=== PATIENT | male | born 1965 | race Caucasian/White ===

== ENCOUNTER 2023-03-04 05:43 | Emergency (ER) | payer OTHER ==
[~2023-03-04] VITALS: Ht 182.9 cm; Wt 159.1 kg
[~2023-03-04 05:43] MED LIST: NO HOME MEDS
--- NOTE | 2023-03-04 06:59 | NUR ---
pt resting at edge of bed. no c/o pain or nausea. denies anxiety. pt not shaking sweating. no reports of itching or hallucinations.
--- NOTE | 2023-03-04 07:11 | NUR ---
RN UPDATED PT EX BONG PINO ON PT STATUS AND REQ REG CORRECT HER PH# IN THE SYSTEM.
[2023-03-04 07:57] VITALS: BP 125/82
--- NOTE | 2023-03-04 08:07 | NUR ---
PT IS BEING DISCHARGED. RN CALLED PT CONTACT BONG AND SHE WILL COME PICK HIM UP FROM WAITING RM.
== END 2023-03-04 08:18 | disposition home or self-care (01) ==
LOC: ER 05:44
DX: R41.82 Altered mental status, unspecified (principal)
CPT/HCPCS: 99284

== ENCOUNTER 2023-08-04 01:22 | Inpatient (IN) | payer MEDICAID ==
[~2023-08-04] VITALS: Ht 185.4 cm; Wt 179.7 kg
[2023-08-04] VITALS (19 sets, daily range): PULSE 95–114; RESP 13–19; O2SAT 88–99
[2023-08-04] MEDS ORDERED: methylPREDNISolone sod succ 125mg/2ml vial IV ONE (01:55)
[2023-08-04] MEDS ORDERED: albuterol 2.5 MG/3 ML nebule NEB ONE ×2 (01:55→03:45)
[2023-08-04 02:49] LABS: BASOPHILS # (AUTO) 0.2 X10'3 (0-0.2); BASOPHILS % (AUTO) 1.7 % (0-1); EOSINOPHILS # (AUTO) 0.1 X10'3 (0-0.9); EOSINOPHILS % (AUTO) 0.9 % (0-6); HEMATOCRIT 42.7 % (42.0-52.0); HEMOGLOBIN 14.8 g/dl (14.0-17.9); LYMPHOCYTES # (AUTO) 1.4 X10'3 (1.1-4.8); LYMPHOCYTES % (AUTO) 14.6 % (21-51); MEAN CORPUSCULAR HEMOGLOBIN 40.3 PG (27.0-31.0); MEAN CORPUSCULAR HGB CONC 34.8 g/dL (33.0-36.5); MEAN CORPUSCULAR VOLUME 115.8 FL (78-98); MEAN PLATELET VOLUME 8.9 FL (7.4-10.4); MONOCYTES # (AUTO) 0.7 X10'3 (0-0.9); MONOCYTES % (AUTO) 7.4 % (2-12); NEUTROPHILS # (AUTO) 7.4 X10'3 (1.8-7.7); NEUTROPHILS % (AUTO) 75.4 % (42-75); PLATELET COUNT 137 X10'3 (140-440); RED BLOOD COUNT 3.69 X10'6 (4.70-6.10); RED CELL DISTRIBUTION WIDTH 20.9 % (11.5-14.5); WHITE BLOOD COUNT 9.9 X10'3 (4.5-11.0)
[2023-08-04 03:29] LABS: APTT 22 SECONDS (22-32); D-DIMER 1.45 MG/L FEU (0-0.50); INR 1.1 INR; PROTHROMBIN TIME 11.9 SECONDS (9.0-12.0)
[2023-08-04 03:40] LABS: ALANINE AMINOTRANSFERASE 32 U/L (12-78); ALBUMIN 2.3 G/DL (3.4-5.0); ALBUMIN/GLOBULIN RATIO 0.6 (1.1-1.5); ALKALINE PHOSPHATASE 196 IU/L (46-116); ANION GAP 6 (8-16); ASPARTATE AMINO TRANSFERASE 90 U/L (10-37); BILIRUBIN,TOTAL 1.5 MG/DL (0.1-1.0); BLOOD UREA NITROGEN 2 MG/DL (7-18); BUN/CREATININE RATIO 2.8 (10.0-20.0); CALCIUM 7.6 MG/DL (8.5-10.1); CHLORIDE 96 MMOL/L (99-107); CREATININE 0.71 MG/DL (0.60-1.10); ETHANOL 252 MG/DL (<10); GLUCOSE 132 MG/DL (70-104); PRO BRAIN NATRIURETIC PEPTIDE 176 PG/ML (0-125); SODIUM 138 MMOL/L (135-145); TOTAL PROTEIN 6.3 G/DL (6.4-8.2); eCRCL 131 ML/MIN; eGFR > 90 ML/MIN
[2023-08-04 03:42] LABS: POTASSIUM 2.4 MMOL/L (3.5-5.1)
[2023-08-04 03:50] LABS: MAGNESIUM 1.7 MG/DL (1.5-2.4)
[2023-08-04] MEDS ORDERED: magnesium 2GM in 50ml NS 50 ML IV ONE (03:50)
[2023-08-04] MEDS ORDERED: CefTRIAXone 2gm/D5W 50ml BAG 50 ML IV ONE (03:50)
[2023-08-04] MEDS ORDERED: potassium Cl 20 mEq SR tablet PO ONE (03:50)
[2023-08-04] MEDS ORDERED: haloperidol 5mg tablet PO PRN (04:00)
[2023-08-04] MEDS ORDERED: LORazepam 1 MG tablet PO PRN (04:00)
[2023-08-04] MEDS ORDERED: aspirin 81mg tab.chew PO ONE (04:00)
[2023-08-04] MEDS ORDERED: potassium Cl 40MEQ/1/2NS 520ml 520 ML IV ONE (04:00)
[2023-08-04] MEDS ORDERED: normal saline 1000ML IV soln IV ONE (04:00)
[2023-08-04] MEDS ORDERED: haloperidol lactate 5mg/ml inj IM PRN (04:00)
[2023-08-04] MEDS ORDERED: potassium Cl 40MEQ/1/2NS 520ml 520 ML IV PRN (04:05)
[2023-08-04] MEDS ORDERED: magnesium Cl slow-release 64mg tablet PO PRN (04:05)
[2023-08-04] MEDS ORDERED: magnesium 4gm in 100ml NS 100 ML IV PRN (04:05)
[2023-08-04] MEDS ORDERED: acetaminophen 325mg tablet PO PRN ×2 (04:05)
[2023-08-04] MEDS ORDERED: ondansetron/PF 4mg/2ml inj IV PRN (04:05)
[2023-08-04] MEDS ORDERED: magnesium 2GM in 50ml NS 50 ML IV PRN (04:05)
[2023-08-04] MEDS ORDERED: potassium Cl 20 mEq SR tablet PO PRN (04:05)
[2023-08-04] MEDS ORDERED: Potassium Cl inj 20 MEQ in normal saline 1000ml 990 ML IV SCH (04:15)
[2023-08-04] MEDS ORDERED: iohexol 350 MG/ML 50ML vial IV ONE (04:16)
[2023-08-04] MEDS ORDERED: iohexol 350MG/ML 100ml bottle IV ONE ×2 (04:16→04:44)
[2023-08-04 05:09] LABS: PLATELET ESTIMATE DECREASED
[2023-08-04 05:10] LABS: ANISOCYTOSIS 3+
[2023-08-04] MEDS: potassium Cl 20mEq in NS 1,000 ML IV SCH ×2 (05:26→15:35)
[2023-08-04] MEDS ORDERED: heparin 10,000 units/1 ML INJ IV PRN (06:00)
[2023-08-04] MEDS ORDERED: heparin 10,000 units/1 ML INJ IV ONE ×2 (06:00)
[2023-08-04] MEDS ORDERED: heparin 25,000 UNIT/250ml bag 250 ML IV PRN ×2 (06:00)
[2023-08-04] MEDS: albuterol 2.5 MG/3 ML nebule NEB SCH ×5 (07:30→23:21)
[2023-08-04] MEDS ORDERED: heparin, porcine 5000 units/ml vial SQ SCH (08:00)
[2023-08-04] MEDS ORDERED: methylPREDNISolone sod succ/PF 40mg inj. IV SCH (08:00)
--- NOTE | 2023-08-04 08:30 | NUR ---
[facility] [phone]
[2023-08-04] MEDS: thiamine 100mg/ml 2ml inj. IV SCH ×3 (08:45→20:32)
[2023-08-04] MEDS: nicotine 21mg patch - 24 hr TD SCH (08:46)
[2023-08-04] MEDS: folic acid 1mg/0.2ml inj IV SCH (08:57)
[2023-08-04 09:35] LABS: URINE AMPHETAMINE SCREEN NEGATIVE (Neg); URINE BARBITUATE SCREEN NEGATIVE (Neg); URINE BENZODIAZEPINES SCREEN NEGATIVE (Neg); URINE CANNABINOID SCREEN NEGATIVE (Neg); URINE COCAINE SCREEN NEGATIVE (Neg); URINE METHADONE SCREEN NEGATIVE (Neg); URINE OPIATE SCREEN NEGATIVE (Neg); URINE PHENCYCLIDINE SCREEN NEGATIVE (Neg)
[2023-08-04] MEDS: furosemide 40mg/4ml inj IV SCH (11:47)
[2023-08-04] MEDS: LORazepam 2 mg/ml vial IV PRN ×2 (14:20→21:21)
[2023-08-04 15:06] LABS: APTT 81 SECONDS (22-32)
--- NOTE | 2023-08-04 16:27 | NUR ---
PT RESTING IN BED, + SHAKES AND PT REQUSTED SOMETHING TO HELP HIM WITH SHAKES AND ANXIETY. PT MEDICATED WITH PRN HALDOL PER ORDERS.
--- NOTE | 2023-08-04 18:07 | NUR ---
PT SLEEPING. PT ON CPAP FOR SEEPING. HEPARIN GTT CONTINUES AT 18ML/HR
--- NOTE | 2023-08-04 21:00 | NUR ---
assisted pt with bedpan, pt had diarrhea and urinated with urinal. pt states diarrhea is normal for him due to the drinking. pt's thighs and buttocks very red and painful for patient to roll and sit on bedpan. pt also c/o hand temors and requesting medication for it. pt denies headache, hallucinations, N/V.
--- NOTE | 2023-08-04 21:35 | NUR ---
spoke with pt mother Tony at bedside on pt's own cell phone with pt permission and updated her with plan of care.
[2023-08-05] VITALS (19 sets, daily range): BP systolic 124–147; BP diastolic 76–85; PULSE 83–113; RESP 12–21; TEMP 97.6–98.1; O2SAT 93–99
[2023-08-05 00:18] LABS: APTT 44 SECONDS (22-32)
[2023-08-05] MEDS: potassium Cl 20mEq in NS 1,000 ML IV SCH ×3 (00:35→20:35)
[2023-08-05 01:14] LABS: BASOPHILS % (AUTO) 0.6 % (0-1); EOSINOPHILS % (AUTO) 0 % (0-6); HEMATOCRIT 35.6 % (42.0-52.0); HEMOGLOBIN 12.3 g/dl (14.0-17.9); LYMPHOCYTES # (AUTO) 0.6 X10'3 (1.1-4.8); LYMPHOCYTES % (AUTO) 7.4 % (21-51); MEAN CORPUSCULAR HGB CONC 34.4 g/dL (33.0-36.5); MEAN CORPUSCULAR VOLUME 116.3 FL (78-98); MEAN PLATELET VOLUME 8.7 FL (7.4-10.4); MONOCYTES # (AUTO) 0.5 X10'3 (0-0.9); MONOCYTES % (AUTO) 5.9 % (2-12); NEUTROPHILS # (AUTO) 7.1 X10'3 (1.8-7.7); NEUTROPHILS % (AUTO) 86.1 % (42-75); PLATELET COUNT 74 X10'3 (140-440); RED BLOOD COUNT 3.07 X10'6 (4.70-6.10); RED CELL DISTRIBUTION WIDTH 20.1 % (11.5-14.5); WHITE BLOOD COUNT 8.3 X10'3 (4.5-11.0)
[2023-08-05 01:29] LABS: ALANINE AMINOTRANSFERASE 27 U/L (12-78); ALBUMIN 2.2 G/DL (3.4-5.0); ALBUMIN/GLOBULIN RATIO 0.6 (1.1-1.5); ALKALINE PHOSPHATASE 169 IU/L (46-116); ANION GAP 0 (8-16); ASPARTATE AMINO TRANSFERASE 70 U/L (10-37); BILIRUBIN,TOTAL 1.8 MG/DL (0.1-1.0); BLOOD UREA NITROGEN 5 MG/DL (7-18); BUN/CREATININE RATIO 7.8 (10.0-20.0); CALCIUM 7.6 MG/DL (8.5-10.1); CHLORIDE 102 MMOL/L (99-107); CREATININE 0.64 MG/DL (0.60-1.10); GLUCOSE 137 MG/DL (70-104); MAGNESIUM 1.9 MG/DL (1.5-2.4); PHOSPHORUS 2.1 MG/DL (2.3-4.5); POTASSIUM 3.1 MMOL/L (3.5-5.1); PRO BRAIN NATRIURETIC PEPTIDE 840 PG/ML (0-125); SODIUM 139 MMOL/L (135-145); TOTAL CARBON DIOXIDE 36.8 MMOL/L (24-32); TOTAL PROTEIN 6.1 G/DL (6.4-8.2); eCRCL 146 ML/MIN; eGFR > 90 ML/MIN
[2023-08-05 01:31] LABS: LIPASE 31 U/L (16-77)
[2023-08-05 02:15] LABS: PLATELET ESTIMATE DECREASED
[2023-08-05 02:17] LABS: ANISOCYTOSIS 3+
[2023-08-05] MEDS: albuterol 2.5 MG/3 ML nebule NEB SCH ×6 (03:02→23:47)
[2023-08-05 03:08] LABS: INR 1.1 INR; PROTHROMBIN TIME 12.1 SECONDS (9.0-12.0)
[2023-08-05] MEDS: CefTRIAXone 2gm/D5W 50ml BAG 50 ML IV SCH (04:09)
[2023-08-05] MEDS: LORazepam 2 mg/ml vial IV PRN (04:10)
[2023-08-05] MEDS ORDERED: heparin 10,000 units/1 ML INJ IV ONE (06:45)
[2023-08-05] MEDS ORDERED: heparin 25,000 UNIT/250ml bag 250 ML IV PRN (06:53)
--- NOTE | 2023-08-05 07:05 | NUR ---
spoke with pharmacy regarding hepatin gtt at 0559 today. per pharmacvy, order had stop date due to it being ordered by ED Dr Angeles. pharmacy reordered under dr bar. recieved verbal order to continue heparin gtt from dr bar on 08/04/2023 at 0600.
[2023-08-05] MEDS: thiamine 100mg/ml 2ml inj. IV SCH ×3 (08:13→21:47)
[2023-08-05] MEDS: furosemide 40mg/4ml inj IV SCH (08:13)
[2023-08-05] MEDS: nicotine 21mg patch - 24 hr TD SCH (08:14)
[2023-08-05] MEDS: folic acid 1mg/0.2ml inj IV SCH (08:46)
[2023-08-05] MEDS ORDERED: HYDROcodone/acetaminophen 5mg/325mg tablet PO ONE (13:45)
[2023-08-05 14:29] LABS: ALANINE AMINOTRANSFERASE 28 U/L (12-78); ALBUMIN 2.2 G/DL (3.4-5.0); ALBUMIN/GLOBULIN RATIO 0.6 (1.1-1.5); ALKALINE PHOSPHATASE 171 IU/L (46-116); ANION GAP 3 (8-16); ASPARTATE AMINO TRANSFERASE 89 U/L (10-37); BILIRUBIN,TOTAL 1.5 MG/DL (0.1-1.0); BLOOD UREA NITROGEN 6 MG/DL (7-18); BUN/CREATININE RATIO 8.1 (10.0-20.0); CALCIUM 7.6 MG/DL (8.5-10.1); CHLORIDE 100 MMOL/L (99-107); CREATININE 0.74 MG/DL (0.60-1.10); GLUCOSE 126 MG/DL (70-104); SODIUM 140 MMOL/L (135-145); TOTAL CARBON DIOXIDE 36.8 MMOL/L (24-32); TOTAL PROTEIN 6.2 G/DL (6.4-8.2); eCRCL 126 ML/MIN; eGFR > 90 ML/MIN
[2023-08-05 14:31] LABS: POTASSIUM 3.2 MMOL/L (3.5-5.1)
[2023-08-05] MEDS: heparin 10,000 units/1 ML INJ IV PRN ×2 (15:08→22:43)
--- NOTE | 2023-08-05 18:41 | NUR ---
Problems reprioritized. Patient report given, questions answered & plan of care reviewed with Klaudia. Addendum: 08/05/23 at 1842 by Franklin Ibarra RN Amended: Links added.
--- NOTE | 2023-08-05 22:35 | NUR ---
Page Sent promotional table spacer PAGER ID: [phone] MESSAGE to : Chung Medina in rm 3028m has positive blood culture of gram negative ros seen in Aerobic bottle, Nicole .pcu,[id number] No new orders at this time. p
[2023-08-06] VITALS (23 sets, daily range): BP systolic 138–162; BP diastolic 62–88; PULSE 77–109; RESP 12–25; TEMP 97.7–98.5; O2SAT 89–97
[2023-08-06] MEDS: albuterol 2.5 MG/3 ML nebule NEB SCH ×6 (02:40→23:16)
[2023-08-06] MEDS: potassium Cl 20mEq in NS 1,000 ML IV SCH ×2 (02:46→17:08)
[2023-08-06] MEDS: heparin 25,000 UNIT/250ml bag 250 ML IV PRN ×2 (03:27→13:09)
[2023-08-06] MEDS: CefTRIAXone 2gm/D5W 50ml BAG 50 ML IV SCH (04:06)
--- NOTE | 2023-08-06 06:43 | NUR ---
Patient in room PCU 3024. I have received report from Cristina COLEMAN and had the opportunity to ask questions and assume patient care.
--- NOTE | 2023-08-06 06:44 | NUR ---
Problems reprioritized. Patient report given, questions answered & plan of care reviewed with YANY
--- NOTE | 2023-08-06 06:49 | NUR ---
Patient in room PCU 3024. I have received report from Klaudia COLEMAN and had the opportunity to ask questions and assume patient care.
[2023-08-06 07:09] LABS: EOSINOPHILS # (AUTO) 0.1 X10'3 (0-0.9); EOSINOPHILS % (AUTO) 2.6 % (0-6); HEMATOCRIT 32.1 % (42.0-52.0); HEMOGLOBIN 10.9 g/dl (14.0-17.9); LYMPHOCYTES # (AUTO) 1.1 X10'3 (1.1-4.8); LYMPHOCYTES % (AUTO) 23.9 % (21-51); MEAN CORPUSCULAR HEMOGLOBIN 40.5 PG (27.0-31.0); MEAN CORPUSCULAR HGB CONC 33.9 g/dL (33.0-36.5); MEAN CORPUSCULAR VOLUME 119.2 FL (78-98); MEAN PLATELET VOLUME 9.2 FL (7.4-10.4); MONOCYTES # (AUTO) 0.2 X10'3 (0-0.9); MONOCYTES % (AUTO) 5.4 % (2-12); NEUTROPHILS % (AUTO) 67.1 % (42-75); PLATELET COUNT 73 X10'3 (140-440); RED BLOOD COUNT 2.69 X10'6 (4.70-6.10); RED CELL DISTRIBUTION WIDTH 19.6 % (11.5-14.5); WHITE BLOOD COUNT 4.5 X10'3 (4.5-11.0)
[2023-08-06 07:10] LABS: INR 1.1 INR; PROTHROMBIN TIME 12.2 SECONDS (9.0-12.0)
[2023-08-06 07:28] LABS: ALANINE AMINOTRANSFERASE 23 U/L (12-78); ALBUMIN 1.9 G/DL (3.4-5.0); ALBUMIN/GLOBULIN RATIO 0.5 (1.1-1.5); ALKALINE PHOSPHATASE 139 IU/L (46-116); ANION GAP 2 (8-16); ASPARTATE AMINO TRANSFERASE 77 U/L (10-37); BILIRUBIN,TOTAL 1.3 MG/DL (0.1-1.0); BLOOD UREA NITROGEN 5 MG/DL (7-18); BUN/CREATININE RATIO 8.6 (10.0-20.0); CALCIUM 7.4 MG/DL (8.5-10.1); CHLORIDE 101 MMOL/L (99-107); CREATININE 0.58 MG/DL (0.60-1.10); GLUCOSE 96 MG/DL (70-104); PHOSPHORUS 2.3 MG/DL (2.3-4.5); PRO BRAIN NATRIURETIC PEPTIDE 530 PG/ML (0-125); SODIUM 138 MMOL/L (135-145); TOTAL CARBON DIOXIDE 34.9 MMOL/L (24-32); TOTAL PROTEIN 5.6 G/DL (6.4-8.2); eCRCL 161 ML/MIN; eGFR > 90 ML/MIN
[2023-08-06 07:32] LABS: LIPASE 37 U/L (16-77)
[2023-08-06] MEDS: nicotine 21mg patch - 24 hr TD SCH (08:00)
[2023-08-06] MEDS: folic acid 1mg/0.2ml inj IV SCH (08:05)
[2023-08-06] MEDS: furosemide 40mg/4ml inj IV SCH (08:06)
[2023-08-06] MEDS: thiamine 100mg/ml 2ml inj. IV SCH ×3 (08:06→20:58)
[2023-08-06] MEDS: potassium Cl 20 mEq SR tablet PO PRN ×3 (08:06→17:07)
[2023-08-06 09:00] LABS: LARGE PLATELETS FEW; PLATELET ESTIMATE DECREASED
[2023-08-06 09:01] LABS: ANISOCYTOSIS 2+; STOMATOCYTES 1+
--- NOTE | 2023-08-06 12:07 | NUR ---
PRESSURE ULCER EDUCATION: DEFINITION: A pressure ulcer is an area of skin that breaks down when you stay in one position too long. The constant pressure against the skin reduces the blood flow to that area and the affected tissue dies. CAUSES: "Being bedridden or in a wheelchair "Fragile skin "Having a chronic condition, such as diabetes or vascular disease "Inability to move certain parts of your body without assistance "Older age "Incontinence of urine or stool SYMPTOMS: "A reddened area that DOES NOT turn white when pressed on - this can be the beginning of a pressure ulcer "A blister, deep sore or a crater - these can be advanced pressure ulcers FIRST AID: "Relieve the pressure on this area "Keep the area clean and dry "Call your primary doctor if you see any of the above symptoms "DO NOT massage the area "DO NOT use a donut shaped or ring shaped pillow- these actually interfere with the blood flow and cause complications PREVENTION: "Check for pressure ulcers everyday "Change position at least every two hours to relieve pressure "Use items that help relieve pressure- pillows, sheepskin, foam padding, and powders. "Keep skin clean and dry "Eat healthy well balanced meals "Exercise daily IF YOU SEE ANY OF THESE SYMPTOMS WHILE IN THE HOSPITAL - TELL YOUR NURSE IMMEDIATELY. IF YOU SEE ANY OF THESE SYMPTOMS WHILE AT HOME OR HAVE ANY QUESTIONS OR CONCERNS ABOUT PRESSURE ULCERS - CALL YOUR PRIMARY DOCTOR IMMEDIATELY. Addendum: 08/06/23 at 1207 by Fernando Parmar RN Amended: Links added.
[2023-08-06] MEDS: rivaroxaban 15mg tablet PO SCH (17:13)
--- NOTE | 2023-08-06 18:22 | NUR ---
Spoke with patient about left side chest pain. Pt states pain is worse when he coughs. States pain is 8/10, does not radiate, is a sharp pain. 12 lead EKG ordered per protocol.
--- NOTE | 2023-08-06 18:24 | NUR ---
Student Medication Administration: For this medication-pass time frame, all medication were reviewed, dispensed, administered and documented per hospital policy by LELA COLEMAN.
--- NOTE | 2023-08-06 18:27 | NUR ---
Problems reprioritized. Patient report given, questions answered & plan of care reviewed with Klaudia COLEMAN.
--- NOTE | 2023-08-06 18:51 | NUR ---
Dr Galdamez notified of pt 's complain of upper L chest pain.New order is to apply Lidocaine patch.
[2023-08-06] MEDS ORDERED: LIDOcaine 5% patch TP SCH (20:00)
[2023-08-06] MEDS: metoprolol tartrate 25mg tablet PO SCH (21:00)
[2023-08-07] VITALS (12 sets, daily range): BP systolic 139–163; BP diastolic 63–81; PULSE 66–88; RESP 14–22; TEMP 97.4–99.1; O2SAT 92–98
[2023-08-07] MEDS: potassium Cl 20mEq in NS 1,000 ML IV SCH ×2 (02:35→13:00)
[2023-08-07] MEDS: albuterol 2.5 MG/3 ML nebule NEB SCH ×3 (03:01→11:06)
[2023-08-07] MEDS: CefTRIAXone 2gm/D5W 50ml BAG 50 ML IV SCH (04:52)
--- NOTE | 2023-08-07 06:36 | NUR ---
Problems reprioritized. Patient report given, questions answered & plan of care reviewed with
[2023-08-07 07:36] LABS: ALANINE AMINOTRANSFERASE 22 U/L (12-78); ALBUMIN/GLOBULIN RATIO 0.5 (1.1-1.5); ALKALINE PHOSPHATASE 131 IU/L (46-116); ANION GAP 7 (8-16); ASPARTATE AMINO TRANSFERASE 103 U/L (10-37); BILIRUBIN,TOTAL 1.2 MG/DL (0.1-1.0); BLOOD UREA NITROGEN 6 MG/DL (7-18); BUN/CREATININE RATIO 9.8 (10.0-20.0); CALCIUM 7.9 MG/DL (8.5-10.1); CHLORIDE 102 MMOL/L (99-107); CREATININE 0.61 MG/DL (0.60-1.10); GLUCOSE 95 MG/DL (70-104); MAGNESIUM 1.7 MG/DL (1.5-2.4); PHOSPHORUS 1.9 MG/DL (2.3-4.5); POTASSIUM 4.2 MMOL/L (3.5-5.1); PRO BRAIN NATRIURETIC PEPTIDE 697 PG/ML (0-125); SODIUM 137 MMOL/L (135-145); TOTAL CARBON DIOXIDE 27.6 MMOL/L (24-32); TOTAL PROTEIN 5.8 G/DL (6.4-8.2); eCRCL 153 ML/MIN; eGFR > 90 ML/MIN
[2023-08-07 07:41] LABS: LIPASE 47 U/L (16-77)
[2023-08-07 07:58] LABS: BASOPHILS % (AUTO) 0.5 % (0-1); EOSINOPHILS # (AUTO) 0.2 X10'3 (0-0.9); EOSINOPHILS % (AUTO) 4.2 % (0-6); HEMATOCRIT 32.2 % (42.0-52.0); LYMPHOCYTES # (AUTO) 0.8 X10'3 (1.1-4.8); LYMPHOCYTES % (AUTO) 19.3 % (21-51); MEAN CORPUSCULAR HEMOGLOBIN 40.9 PG (27.0-31.0); MEAN CORPUSCULAR HGB CONC 34.1 g/dL (33.0-36.5); MEAN PLATELET VOLUME 9.3 FL (7.4-10.4); MONOCYTES # (AUTO) 0.4 X10'3 (0-0.9); PLATELET COUNT 93 X10'3 (140-440); RED BLOOD COUNT 2.69 X10'6 (4.70-6.10); RED CELL DISTRIBUTION WIDTH 20.1 % (11.5-14.5); WHITE BLOOD COUNT 4.4 X10'3 (4.5-11.0)
[2023-08-07] MEDS: nicotine 21mg patch - 24 hr TD SCH (08:11)
[2023-08-07] MEDS: metoprolol tartrate 25mg tablet PO SCH (08:15)
[2023-08-07] MEDS: rivaroxaban 15mg tablet PO SCH (08:15)
[2023-08-07] MEDS: furosemide 40mg/4ml inj IV SCH (08:16)
[2023-08-07 08:34] LABS: INR 1.2 INR; PROTHROMBIN TIME 12.4 SECONDS (9.0-12.0)
[2023-08-07 09:03] LABS: TOTAL CELLS COUNTED 100
[2023-08-07 09:04] LABS: ANISOCYTOSIS 3+; PLATELET ESTIMATE DECREASED; POLYCHROMASIA 1+
--- NOTE | 2023-08-07 09:15 | NUR ---
Patient in room PCU 3024. I have received report from Nicole COLEMAN and had the opportunity to ask questions and assume patient care.
--- NOTE | 2023-08-07 12:02 | NUR ---
Received order for consult. Met with patient in regards to Alcohol use and to see if patient was interested in resources for treatment options. Patient declined resources. He feels that he has a good enough support system and knows where to go for outpatient treatment.
[2023-08-07] MEDS ORDERED: LOP25T PO (13:16)
[2023-08-07] MEDS ORDERED: NICO-687 TD (13:16)
[2023-08-07] MEDS ORDERED: FURO40TA4 PO (13:16)
[2023-08-07] MEDS ORDERED: ALBU2.5V7 NEB (13:16)
[2023-08-07] MEDS ORDERED: LISI5TAB22 PO (13:16)
[2023-08-07] MEDS ORDERED: FA/V1TAB PO (13:17)
[2023-08-07] MEDS ORDERED: RIVA15TA PO (13:33)
[2023-08-07] MEDS ORDERED: FURO-150 PO (13:46)
[2023-08-07] MEDS ORDERED: NICO1PAT36 TOP (13:46)
--- NOTE | 2023-08-07 15:32 | NUR ---
Pt was DC'd as per Dr's orders. Pt was unhooked from all IV and tele. Pt was educated at bedside alone, all questions were answered. Belongings and medical supplies were sent with pt. Pt will make follow up appointment with their Dr and get their meds from their pharmacy. I wheeled pt down to lobby in wheelchair and left in a private vehicle destined for family home.
[2023-08-07] MEDS ORDERED: lisinopril 5mg tablet PO SCH (20:00)
== END 2023-08-07 14:20 | disposition home or self-care (01) | DRG 140 ==
LOC: ER 01:22 → ED HOLD 04:10 → PCU 3S 08-05 15:50
PROVIDERS: ADMIT Internal Medicine; ATTEND Internal Medicine
PROC: B32T1ZZ Computerized Tomography (CT Scan) of Left Pulmonary Artery using Low Osmolar Contrast (ICD-10-PCS; principal; 2023-08-04)
PROC: B3201ZZ Computerized Tomography (CT Scan) of Thoracic Aorta using Low Osmolar Contrast (ICD-10-PCS; 2023-08-04)
PROC: B32S1ZZ Computerized Tomography (CT Scan) of Right Pulmonary Artery using Low Osmolar Contrast (ICD-10-PCS; 2023-08-04)
PROC: 5A09357 Assistance with Respiratory Ventilation, Less than 24 Consecutive Hours, Continuous Positive Airway Pressure (ICD-10-PCS; 2023-08-04)
PROC: 5A09357 Assistance with Respiratory Ventilation, Less than 24 Consecutive Hours, Continuous Positive Airway Pressure (ICD-10-PCS; 2023-08-05)
PROC: 5A09357 Assistance with Respiratory Ventilation, Less than 24 Consecutive Hours, Continuous Positive Airway Pressure (ICD-10-PCS; 2023-08-06)
PROC: 5A09357 Assistance with Respiratory Ventilation, Less than 24 Consecutive Hours, Continuous Positive Airway Pressure (ICD-10-PCS; 2023-08-07)
DX: J44.1 Chronic obstructive pulmonary disease with (acute) exacerbation (principal); I26.99 Other pulmonary embolism without acute cor pulmonale; E66.01 Morbid (severe) obesity due to excess calories; J45.901 Unspecified asthma with (acute) exacerbation; G47.33 Obstructive sleep apnea (adult) (pediatric); J43.9 Emphysema, unspecified; Z59.86 Financial insecurity; Z72.0 Tobacco use; Z79.899 Other long term (current) drug therapy; Z68.43 Body mass index [BMI] 50.0-59.9, adult
CPT/HCPCS: 36415; 71045; 71275; 80053; 80305; 80320; 83605; 83690; 83735; 83880; 84100; 84145; 84484; 85007; 85008; 85025; 85379; 85610; 85730; 87040; 87081; 93005; 93306; 94640; 94660; 94760; 97110; 97161; 97530; 99285; A6212; A6213; A6250; A6258; A6449; G0378; J0696; J1644; J1940; J2060; J2930; J3411; J3475; J3480; J3490; J7030; Q9967